=== PATIENT | female | born 1985 | race Caucasian/White ===

== ENCOUNTER → 2025-07-09 | Outpatient (CLI) | payer MEDICAID, SELFPAY ==
--- NOTE | 2025-07-09 | XR_ITS ---
Examination: Knee, left , 3 views Technique: Knee AP, lateral, oblique 3 views Date and time of exam: July 09, 2025, 0750 hours INDICATIONS: Left knee pain 6 months. FINDINGS: Mild narrowing medial joint space No fracture or dislocation Small knee effusion No foreign body IMPRESSION: Mild narrowing medial joint space
== END | disposition home or self-care (01) ==
PROVIDERS: PCP Nurse Practitioner Family; Referring Provider Nurse Practitioner Family; Visit Provider Nurse Practitioner Family
DX: M25.862 Other specified joint disorders, left knee (principal)
CPT/HCPCS: 73562

== ENCOUNTER 2025-08-15 14:00 | Emergency (ER) | payer MEDICAID, SELFPAY ==
[2025-08-15 14:30] VITALS: BP 130/87; PULSE 95; RESP 18; TEMP 36.8; O2SAT 97; BMI 26.1
--- NOTE | 2025-08-15 14:34 | XR_ITS ---
Examination: Pelvic ultrasound, transabdominal, complete Technique: Transabdominal ultrasound of the pelvis performed using grayscale imaging Date and time of exam: August 15, 2025, 1517 hours INDICATIONS: Pelvic pain and vaginal bleeding beginning 5 days ago FINDINGS: Uterus 8.0 cm endometrial stripe 0.8 cm No uterine mass or intrauterine gestation Right ovary 2.5 cm arterial flow. Left ovary 3.2 cm arterial flow, 1.5 x 1.0 x 3.0 cm simple left ovarian cyst IMPRESSION: 1.5 x 1.0 x 3.0 cm simple left ovarian cyst
--- NOTE | 2025-08-15 14:34 | PD.EDRME ---
Rapid Medical Screening Exam RME Arrival date/time: 08/15/25 14:00 40-year-old female presents emergency department complaint of vaginal bleeding ongoing since Wednesday Chief Complaint: Vaginal Bleeding Time Seen by Provider: 08/15/25 14:14 Vital signs: Vital Signs Temperature 98.3 F 08/15/25 14:30 Pulse Rate 95 08/15/25 14:30 Respiratory Rate 18 08/15/25 14:30 Blood Pressure 130/87 H 08/15/25 14:30 Pulse Oximetry (%) 97 08/15/25 14:30 Oxygen Delivery Method Room Air 08/15/25 14:30
[2025-08-15 15:23] LABS: Basophils # (Auto) 0.0 Thou/mm3 (0.0-0.2); Basophils % (Auto) 1 % (0-2.5); Eosinophils # (Auto) 0.0 Thou/mm3 (0.0-0.5); Eosinophils % (Auto) 1 % (0-10); Hematocrit 38.2 % (36.0-46.0); Hemoglobin 12.0 g/dL (12.0-16.0); Immature Granulocytes Auto 0.01 Thou/mm3 (0.00-0.00); Lymphocytes # (Auto) 2.6 Thou/mm3 (1.0-4.8); Lymphocytes % (Auto) 41 % (10-50); Mean Corpuscular HGB Conc 31.4 g/dl (31.0-37.0); Mean Corpuscular Hemoglobin 26.0 pg (25.0-35.0); Mean Corpuscular Volume 83 fL (80-100); Monocytes # (Auto) 0.4 Thou/mm3 (0.0-0.8); Monocytes % (Auto) 7 % (0-12); Neutrophils # (Auto) 3.1 Thou/mm3 (1.8-7.7); Neutrophils % (Auto) 51 % (37-80); Nucleated Red Blood Cell # 0.00 Thou/mm3 (0.00-0.00); Nucleated Red Blood Cell % 0 /100 WBC (0); Platelet Count 290 Thou/mm3 (140-440); RDW Standard Deviation 41.7 fL (36.4-46.3); Red Blood Count 4.62 Miln/mm3 (4.00-5.20); White Blood Count 6.2 Thou/mm3 (3.6-11.0)
[2025-08-15 15:39] LABS: INR 1.0 (0.9-1.3); Partial Thromboplastin Time 24.7 Seconds (22.0-36.0); Prothrombin Time 10.6 Seconds (9.0-12.2)
[2025-08-15 15:52] LABS: Alanine Aminotransferase 9 U/L (10-49); Albumin, Serum 4.4 gm/dL (3.5-5.0); Albumin/Globulin Ratio 1.8 (1.2-2.2); Alkaline Phosphatase 41 U/L (46-116); Anion Gap 8 (7-16); Aspartate Amino Transferase 16 U/L (0-34); BUN/Creatinine Ratio 8 Ratio (12-20); Bilirubin,Total 0.4 mg/dL (0.3-1.2); Blood Urea Nitrogen 6 mg/dL (9-23); Calcium 9.1 mg/dL (8.3-10.6); Calcium (Corrected) 9.1 mg/dL (8.5-10.1); Carbon Dioxide 24.6 mMol/L (20.0-31.0); Chloride 110 mMol/L (98-107); Creatinine (Component) 0.8 mg/dL (0.6-1.3); Estimated Creatinine Clearance 103.7 mL/min (>60); Globulin 2.5 gm/dL (2.3-3.5); Glucose 83 mg/dL (74-106); Osmolality,Calculated 281 (275-295); Potassium 4.3 mMol/L (3.4-5.1); Sodium 143 mMol/L (136-145); Total Protein 6.9 gm/dL (5.7-8.2); eGFR > 60 See Note
[2025-08-15 16:01] LABS: HCG,Qualitative Serum Negative
--- NOTE | 2025-08-15 16:39 | EDNOTE_ITS ---
ED OB Contraction Preg RMI/HPI General Chief complaint: Vaginal Bleeding Stated complaint: VAG BLEEDING Time Seen by Provider: 08/15/25 14:14 Arrival date/time: 08/15/25 14:00 RME / HPI RME / HPI Narrative: 40-year-old female presents emergency department complaint of vaginal bleeding ongoing since Wednesday. Patient is worried because she passes blood clots 2 days ago. Patient is currently on Depo shots. She denies any . She denies any dizziness it is ambulatory. Seen by Dr Ponce. Tried to call the office of Dr Ponce was advised to come to the emergency room. Related Data Home Medications ?Medication ?Instructions ?Recorded ?Confirmed carbidopa 25 mg-levodopa 100 mg tab 11/23/23 tablet escitalopram oxalate 10 mg tablet mg 11/23/23 famotidine 20 mg tablet mg 11/23/23 Previous Rx's ?Medication ?Instructions ?Recorded hydrocodone 5 mg-acetaminophen 325 1 tab PO Q6H PRN pa in #20 tabs 12/31/23 mg tablet ferrous sulfate 325 mg (65 mg 325 mg PO BID #60 tabs 0 01/02/24 iron) tablet Allergies Allergy/AdvReac Type Severity Reaction Status Date / Time sumatriptan (From Imitrex) Allergy Verified 10/06/23 22:40 Course Quality Measures none Orders Category Date Time Status US pelvic complete Stat Exams 08/15/25 14:34 Completed CBC Stat Lab 08/15/25 14:52 Completed Comprehensive Metabolic Panel Stat Lab 08/15/25 14:52 Completed HCG,Qualitative Serum Stat Lab 08/15/25 14:52 Completed Partial Thromboplastin Time Stat Lab 08/15/25 14:52 Completed Prothrombin Time with INR Stat Lab 08/15/25 14:52 Completed Type and Screen Stat Lab 08/15/25 14:52 Completed Vital Signs Vital signs: Vital Signs Temperature 98.3 F 08/15/25 14:30 Pulse Rate 95 08/15/25 14:30 Respiratory Rate 18 08/15/25 14:30 Blood Pressure 130/87 H 08/15/25 14:30 Pulse Oximetry (%) 97 08/15/25 14:30 Oxygen Delivery Method Room Air 08/15/25 14:30 Vaginal Bleeding MDM Narrative MDM Narrative: 40-year-old female presents emergency department complaint of vaginal bleeding ongoing since Wednesday. Patient is worried because she passes blood clots 2 days ago. Patient is currently on Depo shots. She denies any . She denies any dizziness it is ambulatory. Seen by Dr Ponce. Tried to call the office of Dr Ponce was advised to come to the emergency room. Patient's workup today all came back unremarkable no sign of anemia. Ultrasound of pelvis showed simple ovarian cyst otherwise unremarkable results discussed with the patient. Patient is stable for discharge home advised her to follow-up with TECHNICAL TESTING ENGINEER in few days. Patient data External records reviewed:: None Clinical information provided by:: patient Social determinants that could affect healthcare access:: none Patient has the following chronic illnesses:: None How is presenting disease/condition affected by chronic disease/condition?: no chronic disease Evaluation data The following diagnostics were reviewed and interpreted by me:: lab results and radiology exam(s) Lab and/or radiology exams considered but not ordered:: None Interpretation Summary: See results MDM Medications / Prescriptions Medications or Prescriptions considered but not ordered:: None Medication administrations:: None Consultations Consultation(s) initiated? (list below): No Diagnosis Vaginal Bleeding Differential Diagnosis: dysfunctional uterine bleeding, menometrorrhagia and vaginal bleeding Most likely diagnosis given after review of the tests above:: Heavy menstrual bleeding Admission Indicated Admission indicated?: not indicated Admission Request Was there a request for admission?: No Disposition Plan Disposition Plan: Discharge Discharge Attestation Discharge Attestation: The patient was given an opportunity to ask questions and understood the discharge instructions. Discharge instructions specifically effects, indications for sooner follow up or return to the emergency department, and the expected course of current diagnosis. Patient condition: Stable Discharge Plan Plan Patient Disposition: HOME (Self Care) Discharge Disposition comment: Stable Prescriptions/Referrals Prescriptions/Med Rec: No Action famotidine 20 mg tablet Patient Comments: TAKE 1 TABLET BY MOUTH 2 TIMES DAILY NEEDED FOR HEARTBURN. carbidopa-levodopa 25-100 mg tablet escitalopram oxalate 10 mg tablet hydrocodone-acetaminophen 5-325 mg tablet 1 tab PO Q6H MDD 4 PRN (Reason: pain) Qty: 20 0RF ferrous sulfate 325 mg (65 mg iron) tablet 325 mg PO BID Qty: 60 1RF Referrals: Shawna Bolton, [employer]GET[employer] INSPECTOR [Primary Care Provider] - In 1 week Problem List Clinical Impression: Episode of heavy vaginal bleeding Patient/Caregiver Discharge Instructions Discharge Activity: activity as tolerated Education Materials: Understanding Uterine Bleeding Additional Instructions: Thank you for the opportunity for serving you today. You are stable for disch arged . You are advised to: Follow-up with your TECHNICAL TESTING ENGINEER in 1 to 2 days Return to ED for worsening of symptoms Increase oral fluids Print Language: Mongolian Stand Alone Forms: Qing Award Info., Patient Portal Info Letter PA/CHOP SAW OPERATOR Supervising Physician PA/CHOP SAW OPERATOR Supervising Physician: MD Danilo
== END 2025-08-15 17:14 | disposition home or self-care (01) ==
PROVIDERS: Nurse Practitioner Primary Care; Emergency Provider Family Medicine; PCP Nurse Practitioner Family
DX: N93.9 Abnormal uterine and vaginal bleeding, unspecified (principal); N83.292 Other ovarian cyst, left side
CPT/HCPCS: 36415; 76856; 80053; 84703; 85025; 85610; 85730; 86850; 86900; 86901; 99283